=== PATIENT | female | born 1990 | race Caucasian/White ===

== ENCOUNTER 2021-12-07 19:52 | Emergency (ER) | payer OTHER ==
[2021-12-08] MEDS ORDERED: LODINE CAP 300300 MG PO (02:33)
[2021-12-08] MEDS ORDERED: ZOFRAN ODT 4 MG4 MG PO (02:33)
== END 2021-12-08 02:35 | disposition home or self-care (01) ==
LOC: ER1 19:52
DX: R05.9 Cough, unspecified (principal); R50.9 Fever, unspecified; Z20.822 Contact with and (suspected) exposure to COVID-19; F17.210 Nicotine dependence, cigarettes, uncomplicated
CPT/HCPCS: 0240U; 71045; 81001; 87081; 87086; 87880; 99283

== ENCOUNTER 2022-04-19 19:32 | Emergency (ER) | payer SELFPAY ==
[~2022-04-19 19:32] MED LIST: LODINE CAP 300300 MG PO; ZOFRAN ODT 4 MG4 MG PO
== END 2022-04-19 20:40 | disposition left against medical advice (07) ==
LOC: ER1 19:32
DX: Z53.21 Procedure and treatment not carried out due to patient leaving prior to being seen by health care provider (principal)